=== PATIENT | female | born 1975 | race Caucasian/White ===

== ENCOUNTER → 2020-01-07 13:49 | Outpatient (CLI) | payer BC, SELFPAY ==
[2020-01-08 20:02] LABS: COVID19 Sendout Not Detected (Not Detect)
== END ==
PROVIDERS: PCP Naturopath; Visit Provider Physician Assistant
DX: Z11.59 Encounter for screening for other viral diseases (principal)
CPT/HCPCS: 87635

== ENCOUNTER 2020-01-10 06:50 | Day surgery (SDC) | payer BC, SELFPAY ==
[2020-01-09 13:22] VITALS: BMI 27.4
--- NOTE | 2020-01-10 | PATH_ITS ---
[facility] Accession Number: [id number] . 01 Material submitted: . PART A: endocervix - ENDOCERVICAL CURETTINGS PART B: cervix - ANTERIOR LEEP PART C: cervix - POSTERIOR LEEP . 02 Diagnosis: A. Endocervix, Curettings: Endocervical epithelium with no evidence of neoplasia. . B. Cervix, Anterior LEEP: High-grade squamous intraepithelial neoplasia (SEN 3). Inked margins are free of dysplasia. No evidence of malignancy. . C. Cervix, Posterior LEEP: Transformation zone mucosa with reactive changes consistent with prior instrumentation. No evidence of neoplasia. Additional levels were examined. [facility] 01/15/2020 1635 Local . 02 Electronically signed: . Ranjana Galvan MD, Pathologist NPI- [id number] . 01 Gross description: . A. The specimen is received in formalin, labeled endocervical curettings, and consists of multiple barger-pink fragments of soft tissue and mucus measuring 1.0 x 1.0 x 0.2 cm in aggregate. The specimen is filtered and entirely submitted in cassette A1. B. The specimen is received in formalin, labeled anterior LEEP, and consists of a 1.4 x 1.0 x 0.4 cm, barger-pink, smooth portion of ectocervix. The margin is inked blue. The specimen is serially sectioned and entirely submitted in cassettes B1-B2. C. The specimen is received in formalin, labeled posterior LEEP, and consists of two irregular barger-pink to barger-white, smooth portions of ectocervix measuring 1.5 x 1.0 x 0.4 cm in aggregate. The margins are inked blue. The larger fragment is serially sectioned, and the specimen is entirely submitted in cassettes C1-C2. ([id number]) /FRR 01/11/2020 1412 Local . 02 Pathologist provided ICD-10: D06.9 . 02 CPT . 506140, 916916, 269166 Performed at: 01 [facility] [address] [id number] MD Ras Davenport MD Phone: [phone] Performed at: 02 [facility] [address] [place] [id number] MD Ranjana Galvan MD Phone: [phone]
[2020-01-10 07:19] VITALS: BP 106/73; PULSE 67; RESP 16; TEMP 36.2; O2SAT 98
[2020-01-10 07:22] VITALS: BMI 27.4
[2020-01-10] MEDS: LACTATED RINGERS 1,000 ML 42 ML IV ×2 (07:25→08:28)
--- NOTE | 2020-01-10 07:41 | PM.PREOP ---
Pre-operative Note COVID-19 COVID-19 status: Negative Result date/Date tested (Pos, Neg/Pending): 01/07/20 Interval Note History & Physical reviewed/Exam performed by Physician: Yes Changes to H&P: No
--- NOTE | 2020-01-10 07:58 | SUR.OPER ---
Lithotomy on padded OR bed, head on pillow, arms secured on padded arm boards at <90 degrees abduction. Legs secured in padded yellow fins stirrups.
[2020-01-10 08:12] VITALS: BP 98/57; PULSE 78; RESP 12; TEMP 36.3; O2SAT 96
--- NOTE | 2020-01-10 08:12 | PM.OP.1 ---
Operative Date/Time/Diagnoses Date of procedure: 01/10/20 Time of procedure: 08:13 Pre-op diagnosis: HSIL on cervical biopsy Post-op diagnosis: same Procedure & Clinicians Procedure: Loop electrocautery excision procedure Same procedure as scheduled: Yes Indications: HSIL of cervix Surgeon: Barbara No Click Yes if Unassisted: Yes Anesthesia Type: MAC +/- Operative Notes Findings: Normal vulva and vagina. Closed cervical os. Small area of Lugol's negative solution around cervical os circumferentially, extending 1-2 mm from os. No other gross lesions. Specimen(s): other (Anterior lip of cervix, posterior lip of cervix, endocervical curettage) Estimated Blood Loss (mL): 5 Procedure in detail: After informed consent was obtained, the patient was taken to the operating room where she was placed in the dorsal lithotomy position after anesthesia was obtained. A coated speculum with suction running was placed in the vagina and the cervix easily visualized. The cervix was coated with Lugol's solution, with the above findings noted. 5 cc of 1% lidocaine with epinephrine was injected into the cervical stroma. A 1.5 x 1 cm electrocautery loop was used to remove the anterior and then posterior lip of the cervix. Endocervical curettage was performed. Cautery with the roller ball was used to achieve hemostasis at the biopsy site. Monsel solution was applied to the cervix. Good hemostasis was noted. The speculum was removed from the vagina. The patient tolerated the procedure well and was transferred to PACU. IVF 500ccs Complications: none Post-operative Condition: stable Disposition: PACU Plan for aftercare: Discharge home with routine precautions
[2020-01-10] MEDS: LIDOCAINE 1% W/EPI 20 ML INJ (08:15)
[2020-01-10] MEDS: POTASSIUM IODIDE/IODINE 473 ML SOLUTION TOP (08:16)
[2020-01-10 08:17] VITALS: BP 94/54; PULSE 64; RESP 10; O2SAT 96
--- NOTE | 2020-01-10 08:18 | SUR.OPER ---
Ibeth was used by Dr. No.
[2020-01-10 08:22] VITALS: BP 96/57; PULSE 61; RESP 20; O2SAT 98
[2020-01-10 08:27] VITALS: BP 104/65; PULSE 69; RESP 15; O2SAT 98
[2020-01-10 08:33] VITALS: BP 109/65; PULSE 75; RESP 11; TEMP 36.4; O2SAT 98
== END 2020-01-10 08:45 | disposition home or self-care (01) ==
PROVIDERS: PCP Naturopath; Referring Provider Naturopath; Visit Provider Obstetrics & Gynecology
PROC: 0UBC7ZZ Excision of Cervix, Via Natural or Artificial Opening (ICD-10-PCS; CPT 57522; principal; 2020-01-10 07:45)
DX: D06.9 Carcinoma in situ of cervix, unspecified (principal)
CPT/HCPCS: 57522; J1100; J2250; J2405; J2704; J3010